=== PATIENT | male | born 1985 | race Two or more races ===

== ENCOUNTER 2022-03-11 12:38 | Emergency (ER) | payer BC, OTHER ==
[2022-03-11 13:26] VITALS: BP 122/75; PULSE 65; TEMP 97.9; BMI 27.7
[2022-03-11] MEDS ORDERED: KETOROLAC TROMETHAMINE 30 MG/1 ML VIAL IM ONE (16:22)
[2022-03-11] MEDS ORDERED: KETOROLAC TROMETHAMINE 30 MG/1 ML VIAL ONE (16:48)
== END 2022-03-11 17:23 | disposition home or self-care (01) ==
LOC: JER 12:38 → JERFT 12:38
PROC: 3E0233Z Introduction of Anti-inflammatory into Muscle, Percutaneous Approach (ICD-10-PCS; principal; 2022-03-11)
DX: S86.811A Strain of other muscle(s) and tendon(s) at lower leg level, right leg, initial encounter (principal); X50.0XXA Overexertion from strenuous movement or load, initial encounter
CPT/HCPCS: 73562-TC-RT-FY; 99284-25